=== PATIENT | male | born 1990 | race Caucasian/White ===

== ENCOUNTER 2018-04-30 22:45 | Emergency (ER) | payer MEDICAID, SELFPAY ==
[2018-04-30] VITALS (12 sets, daily range): BP systolic 126–158; BP diastolic 85–115; PULSE 47–112; RESP 12–18; O2SAT 100
[2018-04-30] MEDS: LORazepam 2 MG/ML VIAL (22:51)
[2018-04-30] MEDS: Rocuronium 50 MG/5 ML SYR 100 MG IVP (22:54)
[2018-04-30] MEDS: PROPOFOL 1,000 MG/100 ML BTL 6.564 MG IVPB (22:58)
[2018-04-30 23:00] LABS: Abs Immature Grans 0.03 k/cumm (0.0-0.09); HCT 41.7 % (40.0-50.0); HGB 14.5 g/dL (13.5-17.5); Mean Corp. HGB Concentration 34.8 g/dL (32.0-36.0); Mean Corpuscular Hemoglobin 31.2 pg (27.0-33.0); Mean Corpuscular Volume 89.7 fL (80-95); Mean Platelet Volume 10.4 fL (8.0-11.0); Platelet Count 282 x1000/uL (130-400); RBC 4.65 m/cumm (4.50-6.00); RBC Distribution Width 13.3 % (11.8-14.1); White Blood Cell Count 14.31 k/cumm (4.4-10.8)
[2018-04-30] MEDS: Lactated Ringers 1,000 ML 1000 ML IV (23:07)
--- NOTE | 2018-04-30 23:08 | ED.GENADUL_ITS ---
Medical Decision Making <Carlos Irby MD - Last Filed: 05/01/18 01:53> Patient arrives in status epilepticus. He has received multiple doses of Versed. He is obtunded with no gag reflex. Decision was made to intubate for airway protection. He was still at times having tonic type seizures. He was given 1 mg of Ativan IV and 100 mg of rocuronium IV for intubation. He was intubated by physician media assistant Jacinta under my direct supervision. Please see her procedure note. Intubation was easily accomplished with colorimetric change and breath sounds bilaterally. Patient subsequently started on a propofol drip. Lactated Ringer started. Laboratory studies sent. Head CT and chest x-ray ordered. NG tube and Leonard placed. Patient's girlfriend interviewed by ERMIAS Workman. She reports that the patient has been compliant with his medications. There has been no drug or alcohol use. He typically has seizures when he is overtired. This was more prolonged than usual. Laboratory studies of significance is a white count of 14 likely related to demargination and stress reaction. Chemistry significant for potassium 3.3 and a bicarb of 19. Sugar 209. ABG after intubation shows a pH of 7.28 with a PCO2 of 41 PO2 of 79 and a bicarb of 19. Lactic acid was 3. Head CT is negative. Chest x-ray showed tubes to be in correct position but both the NG and the ET tube needed to be advanced. Patient remains hemodynamically stable. He continues on propofol drip with titration upward for sedation. Case is discussed with neurology and critical care at [facility]. Recommend loading with fosphenytoin which is ordered. Patient accepted in transfer to Dr. Wren. He will be going by ground with medics. Medical Records Medical records reviewed: Yes I reviewed the patient's medical records. Lab Data Lab results reviewed: Yes I reviewed the patient's lab results. HPI <Carlos Irby MD - Last Filed: 05/01/18 01:53> General Mode of arrival: EMS . Date/Time Provider Initiated Documentation: 04/30/18 22:46 . Limitations to Documentation: altered mental status . Information obtained by: EMS and old records reviewed . HPI Narrative: Patient transported to ED by EMS with status epilepticus. Per EMS girlfriend reports patient was probably seizing 10-15 minutes prior to her calling 911. He has had seizures before so she does not immediately call 911. When he did not stop seizing is when she decided to call. Fire department arrived first while he was still seizing. EMS arrived second. He received 10 mg of Versed IM. His seizures seem to slow but returned almost immediately. IV was established and he received two 5 mg IV doses of Versed in route. He arrives here with some tonic posturing, unresponsive, not protecting his airway. Related Data Home Medications Medication Instructions Recorded Confirmed lamotrigine 100 mg PO BID #60 tab-cap 12/11/17 05/01/18 zonisamide 3 cap PO HS #90 tab-cap 12/12/17 05/01/18 Previous Rx's Medication Instructions Recorded lamotrigine 100 mg PO BID #60 tab-cap 12/11/17 zonisamide 3 cap PO HS #90 tab-cap 12/12/17 Allergies Allergy/AdvReac Type Severity Reaction Status Date / Time No Known Allergies Allergy Unverified 12/12/17 13:56 Review of Systems <Carlos Irby MD - Last Filed: 05/01/18 01:53> Review of Systems Unobtainable due to mental status Exam <Carlos Irby MD - Last Filed: 05/01/18 01:53> Const Nutritional Appearance: thin Orientation: obtunded [facility] Head: normocephalic and atraumatic General nose exam: external nose normal and no epistaxis Mouth: other (Minor tongue laceration, poor dentition.) Throat: uvula midline and other (No gag reflex) Eyes Pupils: PERRL (Sluggish) Neck Neck: normal visual inspection and trachea midline Resp Effort & Inspection: other (Snoring respiration) Auscultation: rhonchi Cardio Rate: tachycardic Rhythm: regular rhythm Heart Sounds: S1 normal and S2 normal Skin General skin exam: no rashes or lesions noted Neuro General: moves all extremities, obtunded and other (At times tonic extremity posturing noted) Extrem General: no clubbing, cyanosis or edema <ERMIAS Power - Last Filed: 04/30/18 23:43> Intubation Time out performed: Yes sedative: none paralytic: Rocuronium Mg Given: 100 Laryngoscope: Cecille ET Tube Size: 7 ET Tube Uncuffed: No Tube Secured Depth (cm): 24 Tube Secured Location: teeth Tube Placement Confirmation: visualized tube passing through cords, equal breath sounds bilaterally, no breath sounds over epigastrum and confirmation by capnometry Patient Tolerated Procedure: well and no complications Intubation Complications: none Additional Comments: Patient given 1mg Ativan prior to Calvin for seizure activity. This helped seizure activity. Intubation preformed without complication. Blood noted on patient's tongue, no large amount of blood, no secretions in posterior pharynx. Critical Care Time <Carlos Irby MD - Last Filed: 05/01/18 01:53> Critical Care Time: Yes Total Critical Care Time: 60
--- NOTE | 2018-04-30 23:10 | DI.COMBO_ITS ---
SYMPTOM/DIAGNOSIS: SEIZURE, INTUBATION PORTABLE AP CHEST: The lungs are free of infiltrate. There is no pleural effusion. No pneumothorax. The heart is not enlarged. The hilar structures, mediastinum and tracheal air column is intact with note made of an endotracheal tube ending comfortably above the ruma. SUMMARY: No acute abnormality is seen. An endotracheal tube ends roughly 5.6 cm. above the ruma. NONCONTRAST HEAD CT: The study was carried out without contrast enhancement. There is no evidence of an intra/extra-axial hemorrhage, mass or edema or territorial infarct. No para white matter abnormality. The ventricles are unremarkable. There is no skull fracture. The sinuses are unremarkable. There is no evidence of a mastoid effusion. The soft tissues are unremarkable. SUMMARY: No acute intracranial abnormality is identified.
[2018-04-30 23:11] LABS: ALT 23 U/L (12-78); AST 23 U/L (15-37); Albumin 4.3 g/dL (3.4-5.0); Alkaline Phosphatase 78 U/L (46-116); Anion Gap 17.4 mmol/L (3-11); BUN 20 mg/dL (7-18); Bilirubin, Total 0.3 mg/dL (0.2-1.0); CO2 18.6 mmol/L (21.0-32.0); CREATININE 1.45 mg/dL (0.70-1.30); Calcium 8.6 mg/dL (8.5-10.1); Chloride 100 mmol/L (98-107); Estimated GFR 57.54 (mL/min/1.73m2); Glucose 209 mg/dL (70-100); Magnesium 1.8 mg/dL (1.8-2.4); Potassium 3.3 mmol/L (3.5-5.1); Sodium 136 mmol/L (136-145); Total Protein 7.3 g/dL (6.4-8.2)
[2018-04-30 23:15] LABS: Absolute Lymphocyte Count 7.73 k/cumm (1.2-3.4); Absolute Neutrophil Count 5.44 k/cumm (1.2-6.7); Atypical Lymphocytes % 1
[2018-04-30 23:16] LABS: Absolute Eosinophil Count 0.14 k/cumm (0.0-0.7); Diff Comment Manual Differential; RBC Morphology Normal
--- NOTE | 2018-04-30 23:20 | DI.VRAD_ITS ---
EXAM: XR Chest, 1 View EXAM DATE/TIME: 04/30/2018 10:59 PM CLINICAL HISTORY: 28 years old, male; Device placement; Other: Intubation and ng tube; Patient HX: Seizure, TECHNIQUE: XR of the chest, 1 view. COMPARISON: SC PORTABLE CHEST ONE VIEW 12/08/2017 7:17 AM FINDINGS: Tubes, catheters and devices: Endotracheal tube tip is 4 cm above the level of the ruma. Nasogastric tube tip is right at the GE junction and should be advanced about 10 cm. Lungs: Unremarkable. No consolidation. Pleural space: Unremarkable. No pleural effusion. No pneumothorax. Heart/Mediastinum: Unremarkable. No cardiomegaly. Bones/joints: Unremarkable. IMPRESSION: Tubes as discussed above. Dictated and Authenticated by: Saji Arreguin MD. Ordering:YVONNE Provider Temporary MD
[2018-04-30 23:25] LABS: HCO3 19 mmol/L (22-28); pCO2 41 mmHg (34-47); pH 7.28 (7.35-7.45); pO2 79 mmHg (83-108); sO2 93 % (94-98); tCO2 18 mmol/L (22-29)
[2018-04-30 23:27] LABS: FIO2 40 %; FIO2L Vent L; Site Left Radial
[2018-04-30 23:35] LABS: *AMPHETAMINES SCREEN URINE Negative (Negative); *BARBITURATES SCREEN URINE Negative (Negative); *BENZODIAZEPINES SCREEN URINE POSITIVE (Negative); Cannabinoids THC POSITIVE (Negative); Cocaine Screen,Urine Negative (Negative); METHADONE URINE SCREEN Negative (Negative); OPIATES URINE SCREEN Negative (Negative)
[2018-04-30 23:36] LABS: Tricyclic Antidepressants Negative (Negative)
[2018-05-01] VITALS (42 sets, daily range): BP systolic 72–141; BP diastolic 22–95; PULSE 50–123; RESP 11–37; TEMP 36.4; O2SAT 92–100
--- NOTE | 2018-05-01 | DI.VRAD_ITS ---
EXAM: CT Head Without Intravenous Contrast EXAM DATE/TIME: 04/30/2018 11:07 PM CLINICAL HISTORY: 28 years old, male; Condition or disease; Other: Seizure; Patient HX: Status epilepticus TECHNIQUE: Axial computed tomography images of the head/brain without intravenous contrast. All CT scans at this facility use at least one of these dose optimization techniques: automated exposure control; mA and/or kV adjustment per patient size (includes targeted exams where dose is matched to clinical indication); or iterative reconstruction. Coronal and sagittal reformatted images were created and reviewed. COMPARISON: CT HEAD WITHOUT CONTRAST 12/08/2017 1:15 AM FINDINGS: Brain: Unremarkable. No hemorrhage. No significant white matter disease. No edema. Ventricles: No ventriculomegaly. Bones/joints: No acute fracture. Sinuses: No acute sinusitis. Mastoid air cells: Unremarkable. Soft tissues: Unremarkable. IMPRESSION: No acute intracranial abnormality. Dictated and Authenticated by: Saji Arreguin MD. Ordering:ADRIANNA LEBLANC MD
[2018-05-01] MEDS: Propofol 200 MG/20 ML VIAL 40 MG IVP ×2 (00:21→00:40)
[2018-05-01] MEDS: LORazepam 2 MG/ML VIAL 1 MG IVP (00:30)
--- NOTE | 2018-05-01 00:30 | NUR.NOTE ---
Nursing Note: 2244 arrived by EMS on non-rebreather. transferred to bed and placed on 15 liters non rebreather. Placed on the monitor. 2244. 18 gauge right Antecubital started by Verna DO. 2250 1 mg of ativan given in right AC IV for active seizing. 225 rocurunium given 100 mg in right AC then flushed. 225 successful intubation by Betsy Workman PA 24 cm at the teeth. bag ventilation. Respiratory therapist on his way. 2257 Profopofol initiated at 20 mcg/kg/min per MD order. 230 NG 16 chadian placed at 60 cm and taped per Yvette Hoover RN. 2305- portable x-ray done while being ventilated by bagging. 2305- RT in room right before x-ray and vent in room and started per RT settings by Chuy PAEZ. 2307 xray machine out and IV LR 1000 ml bolus started. 2310 isaac catheter 18 chadian placed by Yvette Hoover RN. NG to low wall continuous suction at 2310. 2320 ABG drawn. 2327 NG advanced 10 cm to 70 cm by Yvette and secure to tube after ET Tube was inserted. ET tube is 7.0 and 26 at the lip. [address] with this RN, Chuy PAEZ, and 2 radiology techs. No issues with transfer and back to bed. Vitals remain stable. Propofol was increased to 25 mcg/kg/min titrated up for test. RASS -2. [address] patient started seizing again at 0015 and lorazepam 1 mg given IV left AC. LR bolus completed and LR started at 100 ml/hr. per MD order. patient with meaningful movement and lifitng hands up to tube. see soft wrist restraint documentation. G/F at bedside after CT test. EMS had placed 20 gauge Left AC prior ot arrival. pressure was softening and 500 ml LR bolus given per MD after ativan and propofol 40 mg IV right AC bolus per MD order at 0021. Continuing to monitor by this television script writer. --Julius DO, BSN.
[2018-05-01] MEDS: PROPOFOL 1,000 MG/100 ML BTL 52.512 MG IVPB (01:55)
[2018-05-01] MEDS: Lactated Ringers 500 ML IV ×2 (02:10→02:11)
[2018-05-01] MEDS: Lactated Ringers 1,000 ML 100 ML IV (02:11)
[2018-05-01] MEDS: LORazepam 2 MG/ML VIAL 0.75 MG IVP (02:12)
== END 2018-05-01 02:12 | disposition short-term general hospital (02) ==
PROVIDERS: Emergency Provider Emergency Medicine; PCP General Practice
DX: G40.901 Epilepsy, unspecified, not intractable, with status epilepticus (principal)
CPT/HCPCS: 31500; 36415; 51702; 71045; 80053; 80307; 82805; 96361; 96365; 96366; 99291; 70450; 83735; 85025; J2060; J3490

== ENCOUNTER 2018-05-26 20:43 | Emergency (ER) | payer MEDICAID, SELFPAY ==
[2018-05-26] VITALS (18 sets, daily range): BP systolic 71–114; BP diastolic 42–77; PULSE 86–135; RESP 13–23; TEMP 36.4; O2SAT 85–98
[2018-05-26] MEDS: LORazepam 2 MG/ML VIAL ×2 (20:52→21:00)
--- NOTE | 2018-05-26 21:06 | DI.CT_ITS ---
SYMPTOMS/DIAGNOSIS: RECURRENT SEIZURES CT BRAIN: Noncontrast. Comparison 04/30/18. The study is limited by patient motion. No gross evidence of intraparenchymal hemorrhage, acute midline shift or mass effect is identified. The ventricles are intact. The basilar cisterns are patent. The visualized paranasal sinuses are clear. The mastoid air cells appear well pneumatized. The calvarium is intact. IMPRESSION: The examination is limited by patient motion artifact. No gross abnormality. No acute intracranial process.
[2018-05-26 21:27] LABS: Abs Immature Grans 0.05 k/cumm (0.0-0.09); Absolute Basophil Count 0.02 k/cumm (0.0-0.2); Absolute Lymphocyte Count 1.58 k/cumm (1.2-3.4); Absolute Monocyte Count 1.44 k/cumm (0.11-0.7); Absolute Neutrophil Count 13.51 k/cumm (1.2-6.7); Basophils % 0.1; HCT 38.1 % (40.0-50.0); HGB 13.3 g/dL (13.5-17.5); Immature Grans % 0.3; Lymphocytes % 9.5; Mean Corp. HGB Concentration 34.9 g/dL (32.0-36.0); Mean Corpuscular Hemoglobin 30.8 pg (27.0-33.0); Mean Corpuscular Volume 88.2 fL (80-95); Mean Platelet Volume 9.9 fL (8.0-11.0); Monocytes % 8.7; Neutrophils % 81.4; Platelet Count 265 x1000/uL (130-400); RBC 4.32 m/cumm (4.50-6.00); RBC Distribution Width 13.4 % (11.8-14.1)
[2018-05-26 21:45] LABS: ALT 48 U/L (12-78); AST 42 U/L (15-37); Albumin 3.8 g/dL (3.4-5.0); Alkaline Phosphatase 66 U/L (46-116); Anion Gap 12.7 mmol/L (3-11); BUN 17 mg/dL (7-18); Bilirubin, Total 0.2 mg/dL (0.2-1.0); CO2 21.3 mmol/L (21.0-32.0); CREATININE 1.04 mg/dL (0.70-1.30); Calcium 8.2 mg/dL (8.5-10.1); Chloride 102 mmol/L (98-107); Glucose 152 mg/dL (70-100); Potassium 3.8 mmol/L (3.5-5.1); Sodium 136 mmol/L (136-145); Total Protein 6.7 g/dL (6.4-8.2)
[2018-05-26 21:46] LABS: Salicylate 4.4 mg/dL (2.8-20.0)
[2018-05-26 21:51] LABS: Acetaminophen < 2 ug/mL (10-30)
[2018-05-26 21:54] LABS: ETHANOL BLOOD < 3.0 mg/dL (<3)
--- NOTE | 2018-05-26 22:03 | DI.VRAD_ITS ---
EXAM: CT Head Without Intravenous Contrast EXAM DATE/TIME: 05/26/2018 9:08 PM CLINICAL HISTORY: 28 years old, male; Signs and symptoms; Other: Recurrent seizures; Additional info: Best images possible. Patient S/P seizure; Ams/combative. Unable to hold still well for exam TECHNIQUE: Axial computed tomography images of the head/brain without intravenous contrast. All CT scans at this facility use at least one of these dose optimization techniques: automated exposure control; mA and/or kV adjustment per patient size (includes targeted exams where dose is matched to clinical indication); or iterative reconstruction. Coronal and sagittal reformatted images were created and reviewed. COMPARISON: CT HEAD WO 04/30/2018 11:34 PM FINDINGS: Study is limited by motion artifact. There is no evidence of intraparenchymal hemorrhage, mass effect or extra-axial collection. Ventricular size is normal. Visualized intraorbital soft tissues are normal. The sinuses are well-aerated. IMPRESSION: Exam limited by motion artifact. No acute intracranial process seen. Dictated and Authenticated by: Kaitlin Baez MD. Ordering:ALISON AGUIRRE MD
[2018-05-26] MEDS: Normal Saline 100 ML (22:06)
--- NOTE | 2018-05-26 23:48 | NUR.NOTE ---
Nursing Note: hold PO lamictal per MD for now, until pt more awake and cooperative.
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
[2018-05-28 12:20] LABS: Lamotrigine 1.4 mcg/mL (2.5 - 15.0)
== END 2018-05-27 00:40 | disposition left against medical advice (07) ==
PROVIDERS: Emergency Provider Student in an Organized Health Care Education/Training Program; PCP General Practice
DX: R56.9 Unspecified convulsions (principal); Z53.29 Procedure and treatment not carried out because of patient's decision for other reasons
CPT/HCPCS: 36415; 80053; 80175; 96365; 96374; 96375; 99284; 70450; 80320; 80329; 85025; 99285; J1953; J2060; J3490

== ENCOUNTER 2018-08-17 23:22 | Emergency (ER) | payer MEDICAID, SELFPAY ==
[2018-08-17] VITALS (7 sets, daily range): BP systolic 109–141; BP diastolic 69–81; PULSE 71–110; RESP 16–26; TEMP 36.5; O2SAT 92–97
--- NOTE | 2018-08-17 23:23 | W.ED.GENAD ---
Discharge Plan Disposition Patient Disposition: HOME Condition: Good Discharge Details Chief Complaint: Seizure Clinical Impression: Seizure disorder Reason For Visit: MELIDA Primary Care Provider: Levon Burciaga ED Provider: Carlos Irby [place] Meds and New Rx's Prescriptions: Continued lamotrigine 200 mg tablet 200 mg PO BID Qty: 60 RF: 5 clonazepam 0.5 mg tablet,disintegrating 0.5 mg PO ONCE Qty: 10 RF: 0 zonisamide 100 mg capsule 300 mg PO HS Qty: 90 RF: 5 Discharge Instructions Instructions: Recurrent Seizures in Adults (ED) Additional Instructions: Continue current medications as prescribed doses. Follow-up with your neurologist/PCP. Return to ED for persistent recurrent seizures, neurologic changes, other concerns. Referrals: Levon Burciaga MD [Primary Care Provider] - Medical Decision Making Patient presenting a little postictal after 3 seizures at home. He has a known seizure disorder. He was treated by his with a dissolvable clonazepam. He will be given Zofran for nausea. Will observe until his mental status returned to normal. He typically refuses to stay once this occurs. He has however had status and has been intubated previously. We will hold off on any imaging or laboratory studies at this point. 00:20 - Patient now A+O x3 and coherent. Nausea better, coughing stopped. Vitals good. Waiting for significant other to arrive. Will probably be able to discharge at that time. He is neuro intact currently and as long as no recurrent seizures is safe for discharge. HPI General Mode of arrival: EMS. Date/Time Provider Initiated Documentation: 08/17/18 23:23. Information obtained by: EMS and old records reviewed. HPI Narrative: Patient brought in by EMS after seizures at home. Patient has history of same. did give him his dissolvable clonazepam. He had a total of 3 seizures. EMS did start an IV but did not treat. He arrives here awake and alert. He is coughing which is typical post seizure. He is a little bit postictal although he does know where he is. He complains of some nausea but otherwise does not offer any complaints up. Related Data Home Medications Medication Instructions Recorded Confirmed clonazepam 0.5 mg disintegrating 0.5 mg PO ONCE #10 tab 05/29/18 05/29/18 tablet lamotrigine 200 mg tablet 200 mg PO BID #60 tab 05/29/18 05/29/18 zonisamide 100 mg capsule 300 mg PO HS #90 tab-cap 06/29/18 Previous Rx's Medication Instructions Recorded clonazepam 0.5 mg disintegrating 0.5 mg PO ONCE #10 tab 05/29/18 tablet lamotrigine 200 mg tablet 200 mg PO BID #60 tab 05/29/18 zonisamide 100 mg capsule 300 mg PO HS #90 tab-cap 06/29/18 Allergies Allergy/AdvReac Type Severity Reaction Status Date / Time No Known Allergies Allergy Unverified 08/17/18 23:28 General WINDY: 2 Review of Systems Review of Systems Unobtainable due to mental status (post ictal) [facility] Medical History Focal epilepsy (Acute) Seizure disorder (Chronic) Family History Brother Seizures Absence epilepsy Paternal Grandmother Seizures Social History household members: significant other and children Smoking and Tabacco status: Current every day alcohol intake: current alcohol intake frequency: holidays/special occasions only Exam Const General: no acute distress and not in distress Orientation: alert and awake HENFL Head: normocephalic and atraumatic Face and sinus: normal facial exam Eyes Pupils: PERRL EOM: EOM intact bilaterally Neck Neck: trachea midline and supple Resp Effort & Inspection: normal respiratory effort Auscultation: clear to auscultation bilaterally Cardio Rate: tachycardic Rhythm: regular rhythm Heart Sounds: S1 normal and S2 normal Skin Trauma: no lacerations or abrasions Neuro General: alert, awake, oriented Patient Orientation: Person and Place, no focal motor deficits and CN's II-XI intact bilaterally Extrem General: full ROM
[2018-08-17] MEDS: Ondansetron 4 MG/2 ML VIAL IVP (23:34)
[2018-08-18] VITALS (8 sets, daily range): BP systolic 90–101; BP diastolic 55–82; PULSE 62–91; RESP 14–21; O2SAT 97
--- NOTE | 2018-08-18 00:20 | NUR.NOTE ---
Addendum entered by Irma Turner 08/18/18 00:21: no seizure activity. Original Note: patient awake, tolerating po fluids. Nursing Note:
[2018-08-18] MEDS: Ibuprofen 600 MG TAB (00:38)
== END 2018-08-18 00:50 | disposition home or self-care (01) ==
PROVIDERS: Emergency Provider Emergency Medicine; PCP General Practice
DX: G40.909 Epilepsy, unspecified, not intractable, without status epilepticus (principal); R11.0 Nausea; R05 Cough
CPT/HCPCS: 96374; 99284; J2405

== ENCOUNTER 2018-08-30 12:57 | Outpatient (CLI) | payer MEDICAID, SELFPAY ==
[2018-08-31 15:09] LABS: Lamotrigine 5.1 mcg/mL (2.5 - 15.0)
[2018-09-01 07:02] LABS: Zonisamide 17 mcg/mL (10-40)
== END 2018-08-30 13:17 ==
PROVIDERS: PCP General Practice; Visit Provider Psychiatry & Neurology Neurology
DX: G40.109 Localization-related (focal) (partial) symptomatic epilepsy and epileptic syndromes with simple partial seizures, not intractable, without status epilepticus (principal); Z51.81 Encounter for therapeutic drug level monitoring; Z79.899 Other long term (current) drug therapy
CPT/HCPCS: 36415; 80175; 80203

== ENCOUNTER 2018-09-13 22:40 | Emergency (ER) | payer MEDICAID, SELFPAY ==
[2018-09-13 22:43] VITALS: BP 103/82; PULSE 92; RESP 16; TEMP 36.6; O2SAT 95
--- NOTE | 2018-09-13 22:47 | W.ED.GENAD ---
Discharge Plan Disposition Patient Disposition: HOME Condition: Good Discharge Details Chief Complaint: Seizure Clinical Impression: Seizure Reason For Visit: MELIDA Primary Care Provider: Levno Burciaga ED Provider: Carlos Irby [place] Meds and New Rx's Prescriptions: Continued lamotrigine 200 mg tablet 200 mg PO BID Qty: 60 RF: 5 zonisamide 100 mg capsule 400 mg PO HS Qty: 120 RF: 5 clonazepam 0.5 mg tablet,disintegrating 1 mg PO ONCE Qty: 20 RF: 0 Discharge Instructions Instructions: Recurrent Seizures in Adults (ED) Additional Instructions: Please take your medication when you get home. Follow-up with primary care. Return to ED for persistent/prolonged seizure. Referrals: Levon Burciaga MD [Primary Care Provider] - Medical Decision Making Patient arrives after seizure at work. He only had one. He has a long history of seizures. He was postictal for EMS but arrives here awake, alert, oriented x3. He reports no headache, facial pain, neck pain. He has a very minor superficial lac to the right eyebrow which does not need suturing. There is underlying contusion. He is neurologically intact. Patient agrees to period of observation prior to discharge. Patient remains awake and alert. He is ambulating without issues. We have contacted his significant other who has contacted her dad to come and get him. He has a little bit of a headache and would like some ibuprofen. He will be discharged home once his ride arrives. HPI General Mode of arrival: EMS. Date/Time Provider Initiated Documentation: 09/13/18 22:47. Limitations to Documentation: no limitations. Information obtained by: patient, EMS and old records reviewed. HPI Narrative: Patient presents to ED from work with seizure. He has a history of seizures. He had only one. He did not receive any benzodiazepines. He was postictal on EMS arrival. He is awake and alert currently. He has no complaints of. He denies having headache. He denies having neck pain. Related Data Home Medications Medication Instructions Recorded Confirmed lamotrigine 200 mg tablet 200 mg PO BID #60 tab 05/29/18 09/13/18 clonazepam 0.5 mg disintegrating 1 mg PO ONCE #20 tab 08/28/18 09/13/18 tablet zonisamide 100 mg capsule 400 mg PO HS #120 tab-cap 08/28/18 09/13/18 Previous Rx's Medication Instructions Recorded lamotrigine 200 mg tablet 200 mg PO BID #60 tab 05/29/18 clonazepam 0.5 mg disintegrating 1 mg PO ONCE #20 tab 08/28/18 tablet zonisamide 100 mg capsule 400 mg PO HS #120 tab-cap 08/28/18 Allergies Allergy/AdvReac Type Severity Reaction Status Date / Time No Known Allergies Allergy Unverified 09/13/18 22:48 General Stated Complaint: Seizure WINDY: 4 Review of Systems Constitutional Denies fever(s), Denies headache(s) and Denies weakness Eyes Denies change in vision and Denies eye pain ENT Denies dizziness, Denies facial pain, Denies headache(s), Denies epistaxis, Denies neck pain and Denies nose pain Cardiovascular Denies chest pain, Denies diaphoresis, Denies syncope and Denies dyspnea Respiratory Denies cough and Denies dyspnea Gastrointestinal Denies abdominal pain, Denies nausea and Denies vomiting Musculoskeletal Denies back pain and Denies neck pain Integumentary/Breasts Reports wounds Neurologic Denies dizziness, Denies syncope, Denies headache(s), Denies focal weakness, Reports seizure-like activity and Denies weakness [facility] Medical History Focal epilepsy (Acute) Seizure disorder (Chronic) Social History Smoking/Tobacco Use Status: Current every day Alcohol Intake: current Alcohol Intake frequency: holidays/special occasions only Drug use: Daily Substance use type: marijuana Household members: significant other and children Do you feel safe at home: Yes Do you feel safe in your relationship?: Yes Exam Const General: cooperative, comfortable and no acute distress Orientation: alert and oriented x3 HENMT Head: normocephalic Face and sinus: ecchymosis (Older looking bruise to top of forehead; fresh contusion right eyebrow), laceration (Superficial laceration to right eyebrow area.) and no tenderness Mouth: lip normal and tongue normal Eyes Pupils: PERRL EOM: EOM intact bilaterally Neck Neck: trachea midline and supple Chest Chest: no tenderness Resp Effort & Inspection: normal respiratory effort Auscultation: clear to auscultation bilaterally Cardio Rate: regular rate Rhythm: regular rhythm Heart Sounds: S1 normal and S2 normal Back/Spine/Pelvis Cervical Spine: cervical ROM normal and No cervical spinal tenderness Thoracic/Lumbar Spine: thoraco-lumbar ROM normal, No thoracic spinal tenderness and No lumbar spinal tenderness Skin General skin exam: ecchymosis Trauma: laceration (Minor superficial right eye) Neuro General: alert, awake, oriented x3, gait normal, tone normal, no focal motor deficits and CN's II-XI intact bilaterally Speech: speech normal Gait: normal gait Sensory Exam: no sensory deficits noted Extrem General: normal to inspection and full ROM Course Vital Signs Temperature 97.9 F 09/13/18 22:43 Pulse 92 H 09/13/18 22:43 Respiratory Rate 16 09/13/18 22:43 Blood Pressure 103/82 09/13/18 22:43 Pulse Oximetry 95 09/13/18 22:43 Temperature 97.9 F 09/13/18 22:43 Temperature Source Skin 09/13/18 22:43 Pulse 92 H 09/13/18 22:43 Respiratory Rate 16 09/13/18 22:43 Blood Pressure 103/82 09/13/18 22:43 Pulse Oximetry 95 09/13/18 22:43 Oxygen Delivery Method Room Air 09/13/18 22:43 Oxygen Flow Rate 0 09/13/18 22:43 Pain Level 0 09/13/18 22:43
--- NOTE | 2018-09-13 22:50 | ED.GENADUL_ITS ---
Discharge Plan Disposition Patient Disposition: HOME Condition: Good Discharge Details Chief Complaint: Seizure Clinical Impression: Seizure Reason For Visit: MELIDA Primary Care Provider: Levon Burciaga ED Provider: Carlos Irby [place] Meds and New Rx's Prescriptions: Continued lamotrigine 200 mg tablet 200 mg PO BID Qty: 60 RF: 5 zonisamide 100 mg capsule 400 mg PO HS Qty: 120 RF: 5 clonazepam 0.5 mg tablet,disintegrating 1 mg PO ONCE Qty: 20 RF: 0 Discharge Instructions Instructions: Recurrent Seizures in Adults (ED) Additional Instructions: Please take your medication when you get home. Follow-up with primary care. Return to ED for persistent/prolonged seizure. Referrals: Levon Burciaga MD [Primary Care Provider] - Medical Decision Making Patient arrives after seizure at work. He only had one. He has a long history of seizures. He was postictal for EMS but arrives here awake, alert, oriented x3. He reports no headache, facial pain, neck pain. He has a very minor superficial lac to the right eyebrow which does not need suturing. There is underlying contusion. He is neurologically intact. Patient agrees to period of observation prior to discharge. Patient remains awake and alert. He is ambulating without issues. We have contacted his significant other who has contacted her dad to come and get him. He has a little bit of a headache and would like some ibuprofen. He will be discharged home once his ride arrives. HPI General Mode of arrival: EMS . Date/Time Provider Initiated Documentation: 09/13/18 22:47 . Limitations to Documentation: no limitations . Information obtained by: patient, EMS and old records reviewed . HPI Narrative: Patient presents to ED from work with seizure. He has a history of seizures. He had only one. He did not receive any benzodiazepines. He was postictal on EMS arrival. He is awake and alert currently. He has no complaints of. He denies having headache. He denies having neck pain. Related Data Home Medications Medication Instructions Recorded Confirmed lamotrigine 200 mg tablet 200 mg PO BID #60 tab 05/29/18 09/13/18 clonazepam 0.5 mg disintegrating 1 mg PO ONCE #20 tab 08/28/18 09/13/18 tablet zonisamide 100 mg capsule 400 mg PO HS #120 tab-cap 08/28/18 09/13/18 Previous Rx's Medication Instructions Recorded lamotrigine 200 mg tablet 200 mg PO BID #60 tab 05/29/18 clonazepam 0.5 mg disintegrating 1 mg PO ONCE #20 tab 08/28/18 tablet zonisamide 100 mg capsule 400 mg PO HS #120 tab-cap 08/28/18 Allergies Allergy/AdvReac Type Severity Reaction Status Date / Time No Known Allergies Allergy Unverified 09/13/18 22:48 General Stated Complaint: Seizure WINDY: 4 Review of Systems Constitutional Denies fever(s), Denies headache(s) and Denies weakness Eyes Denies change in vision and Denies eye pain ENT Denies dizziness, Denies facial pain, Denies headache(s), Denies epistaxis, Denies neck pain and Denies nose pain Cardiovascular Denies chest pain, Denies diaphoresis, Denies syncope and Denies dyspnea Respiratory Denies cough and Denies dyspnea Gastrointestinal Denies abdominal pain, Denies nausea and Denies vomiting Musculoskeletal Denies back pain and Denies neck pain Integumentary/Breasts Reports wounds Neurologic Denies dizziness, Denies syncope, Denies headache(s), Denies focal weakness, Reports seizure-like activity and Denies weakness [facility] Medical History Focal epilepsy (Acute) Seizure disorder (Chronic) Social History Smoking/Tobacco Use Status: Current every day Alcohol Intake: current Alcohol Intake frequency: holidays/special occasions only Drug use: Daily Substance use type: marijuana Household members: significant other and children Do you feel safe at home: Yes Do you feel safe in your relationship?: Yes Exam Const General: cooperative, comfortable and no acute distress Orientation: alert and oriented x3 HENMT Head: normocephalic Face and sinus: ecchymosis (Older looking bruise to top of forehead; fresh contusion right eyebrow), laceration (Superficial laceration to right eyebrow area.) and no tenderness Mouth: lip normal and tongue normal Eyes Pupils: PERRL EOM: EOM intact bilaterally Neck Neck: trachea midline and supple Chest Chest: no tenderness Resp Effort & Inspection: normal respiratory effort Auscultation: clear to auscultation bilaterally Cardio Rate: regular rate Rhythm: regular rhythm Heart Sounds: S1 normal and S2 normal Back/Spine/Pelvis Cervical Spine: cervical ROM normal and No cervical spinal tenderness Thoracic/Lumbar Spine: thoraco-lumbar ROM normal, No thoracic spinal tenderness and No lumbar spinal tenderness Skin General skin exam: ecchymosis Trauma: laceration (Minor superficial right eye) Neuro General: alert, awake, oriented x3, gait normal, tone normal, no focal motor def icits and CN's II-XI intact bilaterally Speech: speech normal Gait: normal gait Sensory Exam: no sensory deficits noted Extrem General: normal to inspection and full ROM Course Vital Signs Temperature 97.9 F 09/13/18 22:43 Pulse 92 H 09/13/18 22:43 Respiratory Rate 16 09/13/18 22:43 Blood Pressure 103/82 09/13/18 22:43 Pulse Oximetry 95 09/13/18 22:43 Temperature 97.9 F 09/13/18 22:43 Temperature Source Skin 09/13/18 22:43 Pulse 92 H 09/13/18 22:43 Respiratory Rate 16 09/13/18 22:43 Blood Pressure 103/82 09/13/18 22:43 Pulse Oximetry 95 09/13/18 22:43 Oxygen Delivery Method Room Air 09/13/18 22:43 Oxygen Flow Rate 0 09/13/18 22:43 Pain Level 0 09/13/18 22:43
[2018-09-13] MEDS: Ibuprofen 400 MG TAB PO (23:39)
[2018-09-13] MEDS: Ondansetron O.D.T. 4 MG TABEF PO (23:43)
[2018-09-14 00:01] VITALS: BP 124/57; PULSE 91; RESP 16; O2SAT 94
== END 2018-09-13 23:22 | disposition home or self-care (01) ==
LOC: ER 09-14 00:01
PROVIDERS: Emergency Provider Emergency Medicine; PCP General Practice
DX: R56.9 Unspecified convulsions (principal); S01.81XA Laceration without foreign body of other part of head, initial encounter; X58.XXXA Exposure to other specified factors, initial encounter
CPT/HCPCS: 99283